=== PATIENT | male | born 2000 | race Two or more races ===

== ENCOUNTER 2025-01-17 10:52 | Emergency (ER) | payer OTHER, SELFPAY ==
[2025-01-17 11:07] VITALS: BP 138/80; PULSE 90; RESP 17; TEMP 36.7; O2SAT 100
--- NOTE | 2025-01-17 11:33 | ED.SKABFB ---
HPI - Skin/Abscess/Foreign Bdy General Chief complaint: Skin/Abscess/Foreign Body Stated complaint: ABSCESS Time Seen by Provider: 01/17/25 11:15 Source: patient and RN notes reviewed Mode of arrival: ambulatory Limitations: no limitations History of Present Illness HPI narrative: 24-year-old male patient presents to the [facility] complaining of left perianal pain for the last approximately 9 days. Patient was seen at clinic [facility] [employer] was told he likely had an abscess to his perirectal region, was started on Augmentin. He has been on Augmentin for approximate days. Patient says he like it was getting better and over the weekend and felt like was getting worse. Patient reports feeling more pain and swelling to his perirectal area. Patient denies any fevers, eczema chills, nausea, vomiting, drainage, or any other symptoms. Denies any problems with defecation. Related Data Home Medications ?Medication ?Instructions ?Recorded ?Confirmed ?Last Taken ?Type amoxicillin 875 mg-potassium 1 tablet PO Q12H 01/17/25 01/17/25 01/16/25 History clavulanate 125 mg tablet Allergies Allergy/AdvReac Type Severity Reaction Status Date / Time No Known Allergies Allergy Verified 01/17/25 11:04 Review of Systems Review of Systems: CONSTITUTIONAL: Denies fever, chills, or sweats. EYES: Denies visual changes, redness, or discharge. ENT: Denies rhinorrhea, congestion, sore throat, or otalgia. CARDIOVASCULAR: Denies chest pain, palpitations, or edema. RESPIRATORY: Denies cough or dyspnea. GASTROINTESTINAL: Denies abdominal pain, nausea, vomiting, or diarrhea. GENITOURINARY: Denies dysuria or hematuria. SKIN: Denies rash, drainage, or itching. Positive for perirectal pain and swelling. MUSCULOSKELETAL: Denies back pain, joint pain, or myalgia. NEUROLOGIC: Denies headache, numbness, or weakness. PSYCHIATRIC: Denies anxiety or depression. All other systems reviewed are negative, except as documented in HPI. PMFSH Comments At the time of my signature, I reviewed and agree with the nursing past medical, surgical, social, and family history. There is no relevant family history pertinent to the patient complaint. Exam Narrative: GENERAL: This is a well-nourished, well-developed adult, in no apparent distress. They are non ill-appearing, nontoxic appearing. HEAD: normocephalic, atraumatic. EYES: Sclera clear/white. Conjunctiva normal. Vision is grossly intact. Extraocular movements intact EARS: External ears normal, . Hearing grossly intact. NOSE: External nose normal THROAT: Mucous membranes moist, NECK: Neck supple, CARDIOVASCULAR: Regular rate and rhythm RESPIRATORY: Respiratory rate normal, respiratory effort nonlabored, no respiratory distress GASTROINTESTINAL: Abdomen soft, non-tender, nondistended. SKIN: Perineum: Left perianal region erythematous, indurated and firm. Extends into the left perineum. No area of fluctuance. Hot to touch. No exudate. No hemorrhoids NEURO: awake, alert, and oriented to person, place and time. There were no obvious focal neurologic abnormalities. EXTREMITIES: No joint tenderness, effusion, or edema noted. BACK: Nontender without deformity. Course Course Emergency Course: Portions of this record may have been created with voice recognition software Level of Care: Express Care Visit Vital Signs Vital signs: Vital Signs Temperature 98.1 F 01/17/25 11:07 Pulse Rate 90 01/17/25 11:07 Respiratory Rate 17 01/17/25 11:07 Blood Pressure 138/80 01/17/25 11:07 Pulse Oximetry 100 01/17/25 11:07 Temperature 98.1 F 01/17/25 11:07 Pulse Rate 90 01/17/25 11:07 Respiratory Rate 17 01/17/25 11:07 Blood Pressure 138/80 01/17/25 11:07 Pulse Oximetry 100 01/17/25 11:07 Reviewed Transfer Transfered to: [facility] Transportation: Other (Private vehicle) Transfer rationale: Possible perirectal abscess, failed outpatient therapy with antibiotics, patient requires higher level care Accepting physician: Geraldine VARGAS MDM - Skin/Abscess/Foreign Bdy MDM Narrative Medical decision making narrative: Appears patient may have a perianal abscess appears to be extending into the perineum, no area of fluctuance. Patient has failed outpatient therapy with Augmentin. No drainage was performed. Patient would benefit from higher level care. Given patient's symptoms, it is recommend the patient seek a higher level care and proceed immediately to the emergency department. Patient is agreeable to go to [facility]. Called over to [facility] and spoke to Geraldine VARGAS who is aware this patient accepted the patient for transfer. Patient advised remain NPO proceed immediately to the ER. Differential Diagnosis Differential diagnosis: Likely abscess of skin or subcutaneous tissue, cellulitis, contact dermatitis and other (Perirectal abscess, fissure, hemorrhoids) Critical Care Time Critical Care Time Critical Care Time: No Discharge Plan Discharge Clinical Impression: Chanel-rectal abscess Patient Disposition: Acute Care Hospital Condition: Stable Patient Language: Nauruan Prescriptions: No Action amoxicillin-pot clavulanate 875-125 mg tablet 1 tablet PO Q12H Follow-up/Referrals: PHYSICIAN,TIMBER SPRINKLER [Primary Care Provider, Internal Medicine] Time of Disposition: 11:32
== END 2025-01-17 11:32 | disposition short-term general hospital (02) ==
DX: K61.1 Rectal abscess (principal)
CPT/HCPCS: 99212; G0463

== ENCOUNTER 2025-01-17 12:07 | Emergency (ER) | payer OTHER, SELFPAY ==
--- NOTE | ~2025-01-17 | CT_ITS ---
EXAMINATION: CT abdomen pelvis w con DATE: 01/17/2025 17:29 INDICATION: Right-sided pelvic pain. Perirectal pain. TECHNIQUE: Computed tomography (CT) of the abdomen and pelvis was performed without intravenous contrast. Automated exposure control and iterative reconstruction technique were employed. The dose-length product was 223.16 mGy-cm. COMPARISON: None. FINDINGS: Lung bases do not show acute findings. No focal lesions of the liver and spleen. Gallbladder, bile ducts, pancreas and kidneys do not show acute findings. No evidence of small bowel obstruction. Appendix measures 3.5 mm in diameter. No pelvic mass or herniations. Minimal free fluid is noted in the pelvic cul-de-sac of indeterminate nature. No focal bone changes of lumbar spine and pelvic bones. IMPRESSION: 1. No acute findings in the upper abdomen and pelvis. 2. Small quantity of free fluid in the pelvic cul-de-sac of undetermined nature. No inflammatory changes are seen in the pelvis. Appendix is normal in size. Reviewed, dictated and finalized at location [facility] IMPRESSION: 1. No acute findings in the upper abdomen and pelvis. 2. Small quantity of free fluid in the pelvic cul-de-sac of undetermined nature . No inflammatory changes are seen in the pelvis. Appendix is normal in size.
[2025-01-17 12:15] VITALS: BP 146/83; PULSE 99; RESP 16; TEMP 36.6; O2SAT 100
[2025-01-17 15:44] LABS: Hematocrit 47.8 % (42.0-52.0); Hemoglobin 15.9 g/dL (14.0-18.0); Immature Granulocyte Percent A 0.4 % (0-0.5); Lymphocytes Absolute Auto 1.48 K/mm3 (0.9-3.2); Mean Corpuscular HGB Conc 33.3 g/dl (32-36); Mean Corpuscular Hemoglobin 28.1 pg (26-34); Mean Corpuscular Volume 84.5 fl (80-100); Nucleated Red Blood Cells Absolute Auto 0.000 K/mm3 (0.0-0.012); Nucleated Red Blood Cells Perc 0.0 % (0.0-0.2); Platelet Count Result 281 k/mm3 (150-375); Red Blood Count 5.66 M/mm3 (4.6-6.20); White Blood Count 9.0 K/mm3 (4.5-10.0)
[2025-01-17 15:53] LABS: Alanine Aminotransferase 21 U/L (6-50); Albumin Level 4.2 g/dL (3.5-5.1); Alkaline Phosphatase 85 U/L (38-126); Anion Gap 6 mmol/L (4-12); Aspartate Amino Transferase 21 U/L (17-59); Bilirubin,Total 0.7 mg/dL (0.2-1.3); Blood Urea Nitrogen 11 mg/dL (9-20); Calcium 9.2 mg/dL (8.4-10.2); Carbon Dioxide 28 mmol/L (22-30); Chloride 105 mmol/L (98-107); Estimated CRCL calculation 93 ml/min; Estimated Glomerular Filt Rate > 60; Glucose 103 mg/dL (65-110); Potassium 4.2 mmol/L (3.4-5.0); Sodium 139 mmol/L (137-145); Total Protein 8.1 g/dL (6.3-8.2)
[2025-01-17 15:58] LABS: INR 1.1; Partial Thromboplastin Time 29.8 Seconds (22.3-36.8); Prothrombin Time 14.0 Seconds (11.1-14.7)
--- NOTE | 2025-01-17 16:47 | ED_ITS ---
HPI - General Adult General Chief complaint: Skin/Abscess/Foreign Body Stated complaint: possible marleny-rectal abcess Time Seen by Provider: 01/17/25 15:04 History of Present Illness HPI narrative: 24-year-old male present to the emergency department for evaluation for rectal pain. Approximately 2 weeks ago patient was having some increased rectal pain noticed with a large bowel movement. Patient did follow-up with his pullman physician and was started on Augmentin. Patient is on 1 of the last day of his 10 day course of Augmentin and states that he is still having some symptoms. He felt the symptoms improved but then worsened again. He tried to have follow-up again with the pullman physician and was referred to the emergency department for evaluation. Patient denies any current pain. Patient has no prior history of perirectal abscess. Patient has no prior history of hemorrhoids. Related Data Home Medications ?Medication ?Instructions ?Recorded ?Confirmed ?Last Taken ?Type amoxicillin 875 mg-potassium 1 tablet PO Q12H 01/17/25 01/17/25 01/16/25 History clavulanate 125 mg tablet Allergies Allergy/AdvReac Type Severity Reaction Status Date / Time No Known Allergies Allergy Verified 01/17/25 11:04 Review of Systems 2 Review of Systems: All systems reviewed & are unremarkable except as noted in HPI and below Exam 2 Narrative: APPEARANCE: Well appearing, no pain, no distress, well-nourished. HEAD: normocephalic, atraumatic. EYES: PERRLA/EOMI, conjunctivae clear. NOSE: Normal no drainage EARS:TMS clear with good light reflex. THROAT: Pharynx clear, no exudate. NECK: Supple. No adenopathy, no masses. RESPIRATORY: Airway patent, respirations nonlabored. Clear to auscultation bilaterally, no rales, rhonchi, wheezing. CARDIOVASCULAR: Regular rate and rhythm without murmurs rubs or gallops. ABDOMINAL: Soft, nontender, nondistended, normal bowel sounds Genital: Mild swelling of the right perineum, no cellulitis, no fluctuance MUSCULOSKELETAL: Moves all extremities. Strength/ROM intact, No edema, No calf tenderness. NEURO: Alert. Cranial nerves II through XII intact. Good gait. Good coordination SKIN: Warm, dry. Normal Color Course Vital Signs Vital signs: Vital Signs Temperature 97.9 F 01/17/25 12:15 Pulse Rate 99 01/17/25 12:15 Respiratory Rate 16 01/17/25 12:15 Blood Pressure 146/83 H 01/17/25 12:15 Pulse Oximetry 100 01/17/25 12:15 Oxygen Delivery Room Air 01/17/25 12:15 Temperature 97.9 F 01/17/25 12:15 Pulse Rate 99 01/17/25 12:15 Respiratory Rate 16 01/17/25 12:15 Blood Pressure 146/83 H 01/17/25 12:15 Pulse Oximetry 100 01/17/25 12:15 Oxygen Delivery Room Air 01/17/25 12:15 Medical Decision Making MDM Narrative Medical decision making narrative: 24-year-old male present to the emergency department for evaluation for concern for rectal abscess. Patient is currently afebrile with no leukocytosis hemoglobin of 15.9. Are normal in 0.0. No acute abnormalities on his CMP. CT did show some fluid in the cul-de-sac but no evidence of abscess. Patient did have some perirectal tenderness along the right perineum with no definitive abscess or cellulitis seen. Patient will be continued on antibiotics. He had been on Augmentin but he will be switched to Cipro Flagyl. Patient was encouraged of close follow-up with his primary care physician. Differential Diagnosis Differential Diagnosis: Hemorrhoid, perirectal abscess, perianal abscess, anal fissure Vital Signs Vital Signs: Vital Signs Temperature 97.9 F 01/17/25 12:15 Pulse Rate 99 01/17/25 12:15 Respiratory Rate 16 01/17/25 12:15 Blood Pressure 146/83 H 01/17/25 12:15 Pulse Oximetry 100 01/17/25 12:15 Oxygen Delivery Room Air 01/17/25 12:15 Temperature 97.9 F 01/17/25 12:15 Pulse Rate 99 01/17/25 12:15 Respiratory Rate 16 01/17/25 12:15 Blood Pressure 146/83 H 01/17/25 12:15 Pulse Oximetry 100 01/17/25 12:15 Oxygen Delivery Room Air 01/17/25 12:15 Lab Data Lab results reviewed: Yes I reviewed the patient's lab results. 01/17/25 15:34 01/17/25 15:34 Labs: Lab Results 01/17/25 Range/Units 15:34 WBC 9.0 (4.5-10.0) K/mm3 RBC 5.66 (4.6-6.20) M/mm3 Hgb 15.9 (14.0-18.0) g/dL Hct 47.8 (42.0-52.0) % MCV 84.5 (80-100) fl MCH 28.1 (26-34) pg MCHC 33.3 (32-36) g/dl RDW 13.2 (11.5-14.5) % Plt Count 281 (150-375) k/mm3 MPV 10.0 (7.4-10.4) fl Immature Gran % (Auto) 0.4 (0-0.5) % Neut % (Auto) 75.8 H (45.5-73.1) % Lymph % (Auto) 16.5 L (18.3-44.2) % Jerome % (Auto) 5.9 (2.6-8.5) % Eos % (Auto) 0.8 (0-4.4) % Baso % (Auto) 0.6 (0.2-1.2) % Lymph # (Auto) 1.48 (0.9-3.2) K/mm3 Jerome # (Auto) 0.5 (0.1-0.6) K/mm3 Eos # (Auto) 0.1 (0-0.3) K/mm3 Baso # (Auto) 0.1 (0.0-0.1) K/mm3 Abs Immat Gran (auto) 0.04 H (0.00-0.031) K/mm3 Absolute Neuts (auto) 6.8 H (1.3-6.7) K/mm3 Absolute Nucleated RBC 0.000 (0.0-0.012) K/mm3 Nucleated RBC % 0.0 (0.0-0.2) % PT 14.0 (11.1-14.7) Seconds INR 1.1 APTT 29.8 (22.3-36.8) Seconds Sodium 139 (137-145) mmol/L Potassium 4.2 (3.4-5.0) mmol/L Chloride 105 (98-107) mmol/L Carbon Dioxide 28 (22-30) mmol/L Anion Gap 6 (4-12) mmol/L BUN 11 (9-20) mg/dL Creatinine 0.96 (0.7-1.3) mg/dL Estim Creat Clear Calc 93 ml/min Estimated GFR > 60 (59 - ) Glucose 103 (65-110) mg/dL Lactic Acid 0.9 (0.7-2.0) mmol/L Calcium 9.2 (8.4-10.2) mg/dL Total Bilirubin 0.7 (0.2-1.3) mg/dL AST 21 (17-59) U/L ALT 21 (6-50) U/L Alkaline Phosphatase 85 (38-126) U/L Total Protein 8.1 (6.3-8.2) g/dL Albumin 4.2 (3.5-5.1) g/dL Imaging Data Radiologist's impression: Impressions Abdomen/Pelvis CT 01/17/25 17:30 IMPRESSION: 1. No acute findings in the upper abdomen and pelvis. 2. Small quantity of free fluid in the pelvic cul-de-sac of undetermined nature. No inflammatory changes are seen in the pelvis. Appendix is normal in size. Discharge Plan Discharge Clinical Impression: Perineum pain, male Patient Disposition: Home Condition: Stable Instructions: Antibiotic Form Additional Instructions: Stop the Augmentin and start taking ciprofloxacin and metronidazole as directed until completed. Can not he did have close follow-up with your physicians. If you have any worsening symptoms then please call or return to the emergency department. Patient Language: Palauan Prescriptions: New metronidazole 500 mg tablet 500 mg PO Q12H 7 Days Qty: 14 0RF ciprofloxacin HCl [Cipro] 500 mg tablet 500 mg PO Q12H 7 Days Qty: 14 0RF No Action amoxicillin-pot clavulanate 875-125 mg tablet 1 tablet PO Q12H Follow-up/Referrals: PHYSICIAN,[employer] WORK[employer] [Primary Care Provider, Internal Medicine]
== END 2025-01-17 18:28 | disposition home or self-care (01) ==
PROVIDERS: Emergency Provider Emergency Medicine
DX: R10.20 Pelvic and perineal pain unspecified side (principal)
CPT/HCPCS: 36415; 74177; 80053; 83605; 85025; 85610; 85730; 99284; Q9967